=== PATIENT | male | born 1990 | race Caucasian/White ===

== ENCOUNTER 2017-11-29 17:53 | Emergency (ER) | payer BC, OTHER ==
[~2017-11-29] VITALS: Ht 170.2 cm; Wt 65.8 kg
--- NOTE | ~2017-11-29 | EKG ---
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
[~2017-11-29 17:53] MED LIST: FLOMAX0.4 MG PO; NORCO 5-325 TA1 EACH PO
[2017-11-29 18:32] LABS: ABSOLUTE NEUTROPHILS 5.4 thou/uL (1.4-8.2); BASOPHILS 0.4 % (0.0-2.0); EOSINOPHILS 1.5 % (0.0-3.0); HEMATOCRIT 44.3 % (42.0-52.0); HEMOGLOBIN 14.7 gm/dL (14.0-18.0); LYMPHOCYTES 34.2 % (24.0-44.0); MCH 27.6 pg (26.0-34.0); MCHC 33.1 g/dL (28.0-37.0); MCV 83.5 fL (80.0-100.0); MONOCYTES 6.2 % (1.0-8.0); PLATELET COUNT 185 thou/uL (150-400); POLYS 57.7 % (36.0-66.0); RDW 13.9 % (10.5-14.5); WBC 9.4 thou/uL (4.0-11.0)
[2017-11-29 18:41] LABS: CALCIUM 8.9 mg/dL (8.5-10.1); CREATININE 1.1 mg/dL (0.7-1.3); POTASSIUM 3.6 mmol/L (3.5-5.1)
[2017-11-29 20:10] LABS: URINE BILIRUBIN NEGATIVE (Negative); URINE BLOOD NEGATIVE (Negative); URINE CLARITY CLEAR; URINE COLOR ORANGE; URINE GLUCOSE-RANDOM* NEGATIVE (Negative); URINE KETONES NEGATIVE (Negative); URINE LEUKOCYTES-REFLEX NEGATIVE (Negative); URINE NITRITE-REFLEX NEGATIVE (Negative); URINE PROTEIN (DIPSTICK) TRACE (Negative); URINE UROBILINOGEN 0.2 E.U./dl (0.2-1.0)
[2017-11-29 20:19] LABS: AMP/METHAMP Negative (Negative); BARBITURATES Negative (Negative); BENZODIAZEPINES Negative (Negative); COCAINE Negative (Negative); METHADONE Negative (Negative); OPIATES Negative (Negative); PCP Negative (Negative)
[2017-11-29 21:01] VITALS: BP 107/59
== END 2017-11-29 21:02 | disposition home or self-care (01) ==
LOC: ER 17:53
PROVIDERS: Emergency Medicine
DX: R55 Syncope and collapse (principal); R20.2 Paresthesia of skin; Z88.0 Allergy status to penicillin

== ENCOUNTER 2019-10-01 07:16 | Emergency (ER) | payer BC, OTHER ==
[~2019-10-01] VITALS: Ht 170.2 cm; Wt 61.2 kg
[2019-10-01 08:12] LABS: ABSOLUTE NEUTROPHILS 6.1 thou/uL (1.4-8.2); BASOPHILS 0.7 % (0.0-2.0); EOSINOPHILS 0.9 % (0.0-3.0); HEMATOCRIT 48.2 % (42.0-52.0); HEMOGLOBIN 16.2 gm/dL (14.0-18.0); LYMPHOCYTES 22.7 % (24.0-44.0); MCH 27.9 pg (26.0-34.0); MCHC 33.6 g/dL (28.0-37.0); MONOCYTES 7.5 % (1.0-8.0); PLATELET COUNT 206 thou/uL (150-400); POLYS 68.2 % (36.0-66.0); RBC 5.81 mil/uL (4.50-6.00); RDW 13.3 % (10.5-14.5); WBC 8.9 thou/uL (4.0-11.0)
[2019-10-01 08:15] LABS: CALCIUM 9.3 mg/dL (8.5-10.1); CREATININE 0.8 mg/dL (0.7-1.3); POTASSIUM 3.9 mmol/L (3.5-5.1)
[2019-10-01 08:21] LABS: ALBUMIN 4.2 g/dL (3.4-5.0); TOTAL BILIRUBIN 0.9 mg/dL (<0.1-1.0); TOTAL PROTEIN 7.7 g/dL (6.4-8.2)
[2019-10-01 09:29] LABS: URINE BILIRUBIN NEGATIVE (Negative); URINE BLOOD NEGATIVE (Negative); URINE CLARITY CLEAR; URINE COLOR YELLOW; URINE GLUCOSE-RANDOM* NEGATIVE (Negative); URINE KETONES NEGATIVE (Negative); URINE LEUKOCYTES-REFLEX NEGATIVE (Negative); URINE NITRITE-REFLEX NEGATIVE (Negative); URINE PROTEIN (DIPSTICK) NEGATIVE (Negative)
[2019-10-01] MEDS ORDERED: CARAFATE 1 GM TA1 G1 PO (09:54)
[2019-10-01] MEDS ORDERED: ZOFRAN ODT4 MG PO (09:54)
[2019-10-01] MEDS ORDERED: TRAMADOL 50 MG50 MG PO (09:54)
[2019-10-01] MEDS ORDERED: PROTONIX40 M1 PO (09:54)
[2019-10-01 10:05] VITALS: BP 103/67
== END 2019-10-01 10:06 | disposition home or self-care (01) ==
LOC: ER 07:16
PROVIDERS: Emergency Medicine
DX: R10.13 Epigastric pain (principal); R11.2 Nausea with vomiting, unspecified; F17.210 Nicotine dependence, cigarettes, uncomplicated; Z87.442 Personal history of urinary calculi; Z88.0 Allergy status to penicillin